=== PATIENT | male | born 1995 | race American Indian/Alaskan Native ===

== ENCOUNTER 2020-08-01 18:51 | Emergency (ER) | payer SELFPAY ==
[2020-08-01] MEDS ORDERED: levETIRAcetam 1000 MG/NS 0.75% 1,000 MG/100 ML BAG IV ONE (18:54)
--- NOTE | 2020-08-01 18:55 | Emergency Department Report ---
ED General Adult HPI - General Chief complaint: Seizure Stated complaint: i think i had a seizure PUI?: No Time Seen by Provider: 08/01/20 18:53 Source: patient, EMS (Verbal report received from emergency medical services. EMS documentation not available at time of chart dictation ), RN notes reviewed Mode of arrival: Stretcher Limitations: No Limitations - History of Present Illness Initial comments: The patient was evaluated in the emergency department for symptoms described in the history of present illness. He/she was evaluated in the context of the global COVID-19 pandemic, which necessitated consideration that the patient might be at risk for infection with the virus that causes COVID-19. Institutional protocols and algorithms that pertain to the evaluation of patients at risk for COVID-19 are in a state of rapid change based on information released by regulatory bodies including the CDC and federal and stat e organizations. These policies and algorithms were followed during the patient's care in the emergency department. Please note that these policies, procedures and recommendations changed on a rapid basis. This is a 24-year-old gentleman. He is not known to myself previously. He reportedly has a history of seizure disorder. He has not been on seizure medications for about a year. He also consumes marijuana recreationally. He does have a neurologist whom he sees in the outside world, and he reports that his neurologist, whose name he cannot remember, advised him that he did not need AED medications last year. Patient was at school today, when he reportedly had a seizure. It is not known how long the seizure lasted for. The patient does not believe he hit his head. He reports that prior to the event, he was not having any physical pain. Afterwards, he has a mild headache. The headache is not sudden or thunderclap in nature. The headache is not maximal in intensity. There is no loss of vision. There is no loss of taste or smell. There is no chest pain or abdominal pain. There is no dysuria. The patient feels like he is essentially back to his baseline. He is asking to be discharged. His last seizure was last year. -: Sudden Consistency: now resolved Improves with: none Worsens with: none Associated Symptoms: denies other symptoms - Related Data Previous Rx's Medication Instructions Recorded Last Taken Type levETIRAcetam [Keppra TAB] 500 mg PO BID #60 tablet 08/01/20 Unknown Rx Allergies Allergy/AdvReac Type Severity Reaction Status Date / Time No Known Allergies Allergy Unverified 05/01/14 09:33 ED Review of Systems ROS: Stated complaint: SEIZURE Other details as noted in HPI Comment: All other systems reviewed and negative Neurological: headache, other (Breakthrough seizure, now resolved) ED Past Medical Hx - Medications Home Medications: Home Medications Medication Instructions Recorded Confirmed Last Taken Type levETIRAcetam [Keppra TAB] 500 mg PO BID #60 tablet 08/01/20 Unknown Rx ED Physical Exam - General Limitations: No Limitations General appearance: alert, in no apparent distress, obese - Head Head exam: Present: atraumatic, normocephalic - Eye Eye exam: Present: normal appearance, PERRL, EOMI, other (Visual acuity intact to finger counting, color perception, reading at a close distance). Absent: nystagmus - ENT ENT exam: Present: normal exam, normal orophraynx, mucous membranes moist, normal external ear exam - Neck Neck exam: Present: normal inspection, full ROM. Absent: tenderness, mening ismus - Respiratory Respiratory exam: Present: normal lung sounds bilaterally. Absent: respiratory distress, wheezes, rales, rhonchi, stridor, decreased breath sounds - Cardiovascular Cardiovascular Exam: Present: regular rate, normal rhythm, normal heart sounds. Absent: bradycardia, tachycardia, irregular rhythm, systolic murmur, diastolic murmur, rubs, gallop - GI/Abdominal GI/Abdominal exam: Present: soft, normal bowel sounds. Absent: distended, tenderness, guarding, rebound, rigid, pulsatile mass - Rectal Rectal exam: Present: deferred - Extremities Exam Extremities exam: Present: normal inspection, full ROM, other (2+ pulses noted in the bilateral upper and lower extremities. There is no palpable cord. negative Homans sign. Muscular compartments are soft. The pelvis is stable.). Absent: pedal edema, calf tenderness - Back Exam Back exam: Present: normal inspection, full ROM. Absent: tenderness, CVA tenderness (R), CVA tenderness (L), paraspinal tenderness, vertebral tenderness - Neurological Exam Neurological exam: Present: alert, oriented X3, normal gait, other (No facial droop. Tongue midline. Extraocular movements intact bilaterally. Facial sensation intact to light touch in V1, V2, V3 distribution bilaterally. 5 and a 5 strength in 4 extremities. Sensation intact to light touch in 4 extremities.). Absent: motor sensory deficit - Psychiatric Psychiatric exam: Present: flat affect - Skin Skin exam: Present: warm, dry, intact, normal color. Absent: rash ED Course Vital Signs 08/01/20 08/01/20 08/01/20 19:13 19:16 19:30 Temperature Pulse Rate Respiratory Rate Blood Pressure 130/52 130/52 113/64 O2 Sat by Pulse 97 95 96 Oximetry 08/01/20 08/01/20 08/01/20 19:46 20:52 21:07 Temperature 98.1 F Pulse Rate 61 Respiratory 23 Rate Blood Pressure 111/69 O2 Sat by Pulse 98 97 Oximetry - Reevaluation(s) Reevaluation #1: 08/01/20 20:53 Differential diagnosis, including but not limited to: Seizure, breakthrough seizure, noncompliance, marijuana use Assessment and plan: 24-year-old gentleman, who has a EEG confirmed seizures at this hospital in 2014, currently clinically sober, with a GCS of 15, nonfocal motor examination, who is afebrile, with reassuring vital signs, with breakthrough seizure, which is likely secondary to medication noncompli ance/discontinuation, as well as likely secondary to concomitant marijuana consumption. EKG reviewed and appreciated. Laboratory studies reviewed and appreciated. Anion gap is likely secondary to history of seizure. Patient resting comfortably in stretcher at this time, in no acute distress, and is loaded with Keppra. He is not had a convulsive event in the few hours that he has been here. Patient advised to not drive or operate motor vehicles for the next 6 months. Advised to discontinue marijuana consumption. We will give IV fluids, we are awaiting urinalysis, we will repeat basic me tabolic panel to demonstrate improvement in anion gap acidosis. Resting comfortably at this time, in no acute distress. 08/01/20 23:57 Patient reassessed multiple times. Repeat chemistry demonstrates resolution of anion gap. Patient has had no seizures. He is sleeping comfortably, now awake, alert, oriented, sober, walks with a steady gait, and indicates readiness for discharge. We have reiterated discharge instructions for not driving, avoidance of marijuana consumption. Patient has articulated understanding. He has a GCS of 15, and states that a friend or family member is present to pick him up. He is suitable for discharge at this time, with outpatient follow-up and return precautions. ED Medical Decision Making - Lab Data Result diagrams: 08/01/20 19:03 08/01/20 21:53 Lab Results 08/01/20 08/01/20 08/01/20 Range/Units 19:03 19:03 19:03 Hgb 15.5 H (11.8-15.2) gm/dl Hct 47.2 H (35.5-45.6) % Plt Count 285 (140-440) K/mm3 PT (12.2-14.9) Sec. INR (0.87-1.13) Sodium 136 L (137-145) mmol/L Potassium 4.3 (3.6-5.0) mmol/L Chloride 98.8 (98-107) mmol/L Carbon Dioxide 17 L (22-30) mmol/L Anion Gap 25 mmol/L BUN 9 (9-20) mg/dL Creatinine 1.1 (0.8-1.3) mg/dL Estimated GFR > 60 ml/min BUN/Creatinine Ratio 8 % Glucose 141 H (75-100) mg/dL Calcium 9.3 (8.4-10.2) mg/dL Magnesium 2.50 H (1.7-2.3) mg/dL Total Bilirubin 0.40 (0.1-1.2) mg/dL AST 13 (5-40) units/L ALT 13 (7-56) units/L Alkaline Phosphatase 88 (35-129) units/L Total Creatine Kinase 173 H (55-170) units/L Total Protein 7.5 (6.3-8.2) g/dL Albumin 4.6 (3.9-5) g/dL Albumin/Globulin Ratio 1.6 % Salicylates < 0.3 L (2.8-20.0) mg/dL Acetaminophen (10.0-30.0) ug/mL Plasma/Serum Alcohol (0-0.07) % 08/01/20 08/01/20 08/01/20 Range/Units 19:03 19:03 19:03 Hgb (11.8-15.2) gm/dl Hct (35.5-45.6) % Plt Count (140-440) K/mm3 PT 14.9 (12.2-14.9) Sec. INR 1.19 H (0.87-1.13) Sodium (137-145) mmol/L Potassium (3.6-5.0) mmol/L Chloride (98-107) mmol/L Carbon Dioxide (22-30) mmol/L Anion Gap mmol/L BUN (9-20) mg/dL Creatinine (0.8-1.3) mg/dL Estimated GFR ml/min BUN/Creatinine Ratio % Glucose (75-100) mg/dL Calcium (8.4-10.2) mg/dL Magnesium (1.7-2.3) mg/dL Total Bilirubin (0.1-1.2) mg/dL AST (5-40) units/L ALT (7-56) units/L Alkaline Phosphatase (35-129) units/L Total Creatine Kinase (55-170) units/L Total Protein (6.3-8.2) g/dL Albumin (3.9-5) g/dL Albumin/Globulin Ratio % Salicylates (2.8-20.0) mg/dL Acetaminophen 5.0 L (10.0-30.0) ug/mL Plasma/Serum Alcohol < 0.01 (0-0.07) % Vital Signs 08/01/20 08/01/20 08/01/20 19:13 19:16 19:30 Pulse Rate Respiratory Rate Blood Pressure 130/52 130/52 113/64 O2 Sat by Pulse 97 95 96 Oximetry 08/01/20 08/01/20 19:46 20:52 Pulse Rate 61 Respiratory 23 Rate Blood Pressure 111/69 O2 Sat by Pulse 98 97 Oximetry Lab Results 08/01/20 08/01/20 08/01/20 Range/Units 19:03 19:03 19:03 Hgb 15.5 H (11.8-15.2) gm/dl Hct 47.2 H (35.5-45.6) % Plt Count 285 (140-440) K/mm3 PT (12.2-14.9) Sec. INR (0.87-1.13) Sodium 136 L (137-145) mmol/L Potassium 4.3 (3.6-5.0) mmol/L Chloride 98.8 (98-107) mmol/L Carbon Dioxide 17 L (22-30) mmol/L Anion Gap 25 mmol/L BUN 9 (9-20) mg/dL Creatinine 1.1 (0.8-1.3) mg/dL Estimated GFR > 60 ml/min BUN/Creatinine Ratio 8 % Glucose 141 H (75-100) mg/dL Calcium 9.3 (8.4-10.2) mg/dL Magnesium 2.50 H (1.7-2.3) mg/dL Total Bilirubin 0.40 (0.1-1.2) mg/dL AST 13 (5-40) units/L ALT 13 (7-56) units/L Alkaline Phosphatase 88 (35-129) units/L Total Creatine Kinase 173 H (55-170) units/L Total Protein 7.5 (6.3-8.2) g/dL Albumin 4.6 (3.9-5) g/dL Albumin/Globulin Ratio 1.6 % Urine Color (Yellow) Urine Turbidity (Clear) Urine pH (5.0-7.0) Ur Specific [place] (1.003-1.030) Urine Protein (Negative) mg/dL Urine Glucose (UA) (Negative) mg/dL Urine Ketones (Negative) mg/dL Urine Blood (Negative) Urine Nitrite (Negative) Urine Bilirubin (Negative) Urine Urobilinogen (<2.0) mg/dL Ur Leukocyte Esterase (Negative) Urine WBC (Auto) (0.0-6.0) /HPF Urine RBC (Auto) (0.0-6.0) /HPF Urine Mucus /HPF Salicylates < 0.3 L (2.8-20.0) mg/dL Acetaminophen (10.0-30.0) ug/mL Plasma/Serum Alcohol (0-0.07) % 08/01/20 08/01/20 08/01/20 Range/Units 19:03 19:03 19:03 Hgb (11.8-15.2) gm/dl Hct (35.5-45.6) % Plt Count (140-440) K/mm3 PT 14.9 (12.2-14.9) Sec. INR 1.19 H (0.87-1.13) Sodium (137-145) mmol/L Potassium (3.6-5.0) mmol/L Chloride (98-107) mmol/L Carbon Dioxide (22-30) mmol/L Anion Gap mmol/L BUN (9-20) mg/dL Creatinine (0.8-1.3) mg/dL Estimated GFR ml/min BUN/Creatinine Ratio % Glucose (75-100) mg/dL Calcium (8.4-10.2) mg/dL Magnesium (1.7-2.3) mg/dL Total Bilirubin (0.1-1.2) mg/dL AST (5-40) units/L ALT (7-56) units/L Alkaline Phosphatase (35-129) units/L Total Creatine Kinase (55-170) units/L Total Protein (6.3-8.2) g/dL Albumin (3.9-5) g/dL Albumin/Globulin Ratio % Urine Color (Yellow) Urine Turbidity (Clear) Urine pH (5.0-7.0) Ur Specific [place] (1.003-1.030) Urine Protein (Negative) mg/dL Urine Glucose (UA) (Negative) mg/dL Urine Ketones (Negative) mg/dL Urine Blood (Negative) Urine Nitrite (Negative) Urine Bilirubin (Negative) Urine Urobilinogen (<2.0) mg/dL Ur Leukocyte Esterase (Negative) Urine WBC (Auto) (0.0-6.0) /HPF Urine RBC (Auto) (0.0-6.0) /HPF Urine Mucus /HPF Salicylates (2.8-20.0) mg/dL Acetaminophen 5.0 L (10.0-30.0) ug/mL Plasma/Serum Alcohol < 0.01 (0-0.07) % 08/01/20 08/01/20 Range/Units 21:53 23:07 Hgb (11.8-15.2) gm/dl Hct (35.5-45.6) % Plt Count (140-440) K/mm3 PT (12.2-14.9) Sec. INR (0.87-1.13) Sodium 138 (137-145) mmol/L Potassium 4.0 (3.6-5.0) mmol/L Chloride 103.5 (98-107) mmol/L Carbon Dioxide 26 D (22-30) mmol/L Anion Gap 13 mmol/L BUN 9 (9-20) mg/dL Creatinine 1.1 (0.8-1.3) mg/dL Estimated GFR > 60 ml/min BUN/Creatinine Ratio 8 % Glucose 105 H (75-100) mg/dL Calcium 9.1 (8.4-10.2) mg/dL Magnesium (1.7-2.3) mg/dL Total Bilirubin (0.1-1.2) mg/dL AST (5-40) units/L ALT (7-56) units/L Alkaline Phosphatase (35-129) units/L Total Creatine Kinase (55-170) units/L Total Protein (6.3-8.2) g/dL Albumin (3.9-5) g/dL Albumin/Globulin Ratio % Urine Color Straw (Yellow) Urine Turbidity Clear (Clear) Urine pH 5.0 (5.0-7.0) Ur Specific [place] 1.016 (1.003-1.030) Urine Protein 100 mg/dl (Negative) mg/dL Urine Glucose (UA) Neg (Negative) mg/dL Urine Ketones Tr (Negative) mg/dL Urine Blood Sm (Negative) Urine Nitrite Neg (Negative) Urine Bilirubin Neg (Negative) Urine Urobilinogen < 2.0 (<2.0) mg/dL Ur Leukocyte Esterase Neg (Negative) Urine WBC (Auto) 2.0 (0.0-6.0) /HPF Urine RBC (Auto) 1.0 (0.0-6.0) /HPF Urine Mucus Few /HPF Salicylates (2.8-20.0) mg/dL Acetaminophen (10.0-30.0) ug/mL Plasma/Serum Alcohol (0-0.07) % - EKG Data 08/01/20 20:52 EKG today's interpreted at 19: 44 Sinus rhythm, 80 bpm. Left axis deviation. Left anterior fascicular block. QTC within normal limits. This is an abnormal EKG. There is no prior for comparison. Critical care attestation.: If time is entered above; I have spent that time in minutes in the direct care of this critically ill patient, excluding procedure time. ED Disposition Clinical Impression: History of seizure, History of marijuana use Disposition: TO HOME OR SELFCARE Is pt being admited?: No Does the pt Need Aspirin: No Condition: Good Instructions: Cannabis Use Disorder, Seizure, Adult, [id number] Additional Instructions: We recommend that the patient not drive or operate motor vehicles for the next 6 months. We recommend that the patient follow-up with a primary care doctor or neurologist within the next 3 to 5 days for breakthrough seizure. Recommend that patient discontinue marijuana and cannabis consumption. Marijuana may decrease seizure threshold, and may make the patient more prone to having seizures. Seizures may cause , disability, paralysis, loss of quality of life. Take the seizure medication as directed. Avoid consumption of alcohol. Patient may take Tylenol and ibuprofen [id number] as needed for pain. Please return to the emergency room right away with new pain, worsened pain, migration of pain, projectile vomiting, change in mental status, confusion, inability to tolerate liquid feeds, new, worsened or different symptoms not present on the initial emergency room evaluation. Prescriptions: levETIRAcetam [Keppra TAB] 500 mg PO BID #60 tablet Referrals: PRIMARY CAREMD [Primary Care Provider] - 3-5 Days LILIANA MARSH MD [Referring] - 3-5 Days RUIZ PAINTING MD [Staff Physician] - 3-5 Days Forms: Work/School Release Form(ED)
[2020-08-01 19:19] LABS: Hematocrit 47.2 % (35.5-45.6); Hemoglobin 15.5 gm/dl (11.8-15.2)
[2020-08-01 19:34] LABS: INR 1.19 (0.87-1.13)
[2020-08-01 19:42] LABS: Alanine Aminotransferase 13 units/L (7-56); Albumin 4.6 g/dL (3.9-5); BUN/Creatinine Ratio 8; Blood Urea Nitrogen 9 mg/dL (9-20); Calcium 9.3 mg/dL (8.4-10.2); Hemolysis Index 2
[2020-08-01] MEDS ORDERED: LACTATED RINGERS 2,000 ML IV ONE (20:49)
[2020-08-01] MEDS ORDERED: ACETAMINOPHEN 325 MG TAB PO STA (20:54)
[2020-08-01 22:19] LABS: BUN/Creatinine Ratio 8; Blood Urea Nitrogen 9 mg/dL (9-20); Calcium 9.1 mg/dL (8.4-10.2); Hemolysis Index 4
[2020-08-01 23:35] LABS: Bilirubin,Urine NEG (Negative); Blood,Urine SM (Negative); Color,Urine Straw (Yellow); Mucus,Urine FEW /HPF; Urobilinogen,Urine < 2.0 mg/dL (<2.0)
[2020-08-01 23:59] LABS: Amphetamine Screen,Urine PRESUMPTIVE NEGATIVE; Cannabinoid Screen,Urine PRESUMPTIVE POSITIVE; Cocaine Screen,Urine PRESUMPTIVE NEGATIVE; Methadone Screen,Urine PRESUMPTIVE NEGATIVE; Opiate Screen,Urine PRESUMPTIVE NEGATIVE
[2020-08-02 00:04] VITALS: BP 106/54
[2020-08-02 00:33] LABS: Benzodiazepines Screen,Urine PRESUMPTIVE NEGATIVE
--- NOTE | 2020-08-02 11:31 | Electrocardiograph Report ---
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
== END 2020-08-02 00:06 | disposition home or self-care (01) ==
LOC: ED 18:51
DX: G40.909 Epilepsy, unspecified, not intractable, without status epilepticus (principal); F12.10 Cannabis abuse, uncomplicated; Z79.899 Other long term (current) drug therapy
CPT/HCPCS: 36415; 80048; 80053; 80307; 81001; 82550; 83735; 85014; 85018; 85049; 85610; 93005; 96361; 96365; 99283; J1953; J7120; 80320; G0480